=== PATIENT | female | born 1950 | race Caucasian/White ===

== ENCOUNTER → 2019-11-20 | Outpatient (CLI) | payer BC ==
[~2019-11-20] MED LIST: ASPI81TA86 PO; ATOR1TAB19 PO; BYDU1INJ SC; COQ-100C5 PO; CYAN1000VL IM; HM M250T PO; HYDR12.55 PO; IRBE75TA4 PO; METF-877 PO; NO ITAB PO; OMEP1CAP73 PO; SYNT100T PO
== END ==
LOC: M LABSMTC 09:08
PROVIDERS: ATTEND Anesthesiology
DX: Z01.818 Encounter for other preprocedural examination (principal); Z11.59 Encounter for screening for other viral diseases
CPT/HCPCS: C9803; U0003

== ENCOUNTER 2019-11-24 06:42 | Day surgery (SDC) | payer MEDICARE ==
[~2019-11-24] VITALS: Ht 162.6 cm; Wt 79.8 kg
[2019-11-24] MEDS ORDERED: LIDOCAINE 2% MDV 20ML VIAL As Ordered ONE (06:55)
[2019-11-24] MEDS ORDERED: propofoL 200 MG/20 ML VIAL As Ordered ONE (06:55)
[2019-11-24] MEDS ORDERED: NS 1,000 ML IV ONE (07:00)
--- NOTE | 2019-11-24 08:06 | ROOR ---
Patient Name: Shell Kaur Procedure Date: 11/24/2019 7:29 AM Date of : 1950 Age: 69 Room: [facility] Gender: Female Note Status: Finalized Procedure: Total Colonoscopy to Cecum + Biopsy Polypectomy Indications: Screening for colorectal malignant neoplasm Providers: Alexandr Rdz MD Referring MD: Bernadine MILLS MD Requesting Provider: Medicines: Monitored Anesthesia Care Complications: No immediate complications. Procedure: Pre-Anesthesia Assessment: - The heart rate, respiratory rate, oxygen saturations, blood pressure, adequacy of pulmonary ventilation, and response to care were monitored throughout the procedure. The Colonoscope was introduced through the anus and advanced to the cecum, identified by appendiceal orifice and ileocecal valve. The colonoscopy was performed without difficulty. The patient tolerated the procedure well. The quality of the bowel preparation was excellent. Findings: The perianal and digital rectal examinations were normal. Non-bleeding internal hemorrhoids were found during retroflexion. The hemorrhoids were small and Grade I (internal hemorrhoids that do not prolapse). Multiple small and large-mouthed diverticula were found in the recto-sigmoid colon, sigmoid colon and descending colon. A small polyp was found in the hepatic flexure. The polyp was sessile. The polyp was removed with a cold biopsy forceps. Resection and retrieval were complete. The exam was otherwise without abnormality on direct and retroflexion views. Impression: - Non-bleeding internal hemorrhoids. - Diverticulosis in the recto-sigmoid colon, in the sigmoid colon and in the descending colon. - One small polyp at the hepatic flexure, removed with a cold biopsy forceps. Resected and retrieved. - The examination was otherwise normal on direct and retroflexion views. - The exam was otherwise normal to the cecum. Recommendation: - Patient has a contact number available for emergencies. The signs and symptoms of potential delayed complications were discussed with the patient. Return to normal activities tomorrow. Written discharge instructions were provided to the patient. - High fiber diet. - Discharge patient to home. - Continue present medications. - Await pathology results. - Telephone GI clinic for pathology results in 1 week. - Repeat colonoscopy in 7 years for surveillance based on pathology results. - Return to referring physician. - The findings and recommendations were discussed with the patient. Alexandr Rdz MD Alexandr Rdz MD 11/24/2019 8:06:20 AM Electronically signed by Alexandr Rdz MD Number of Addenda: 0 Note Initiated On: 11/24/2019 7:29 AM Estimated Blood Loss: Estimated blood loss: none.
[2019-11-24 08:30] VITALS: BP 182/83
== END 2019-11-24 08:45 | disposition home or self-care (01) ==
LOC: M OPP 06:42
PROVIDERS: ATTEND Internal Medicine Gastroenterology
DX: Z12.11 Encounter for screening for malignant neoplasm of colon (principal); K64.0 First degree hemorrhoids; K63.5 Polyp of colon; K57.30 Diverticulosis of large intestine without perforation or abscess without bleeding; E11.9 Type 2 diabetes mellitus without complications; E03.9 Hypothyroidism, unspecified; I10 Essential (primary) hypertension; Z79.82 Long term (current) use of aspirin; Z79.84 Long term (current) use of oral hypoglycemic drugs; Z79.899 Other long term (current) drug therapy; Z87.891 Personal history of nicotine dependence

== ENCOUNTER 2025-01-19 10:08 | Day surgery (SDC) | payer MEDICARE ==
[~2025-01-19] VITALS: Ht 162.6 cm; Wt 79.9 kg
[~2025-01-19 10:08] MED LIST changes: +ECOT81TA5 PO; +GLIM2TAB4 PO; +IRBE75TA11 PO; -IRBE75TA4 PO; +METO1TAB32 PO; +ROSU20TA86 PO
[2025-01-19] MEDS ORDERED: LIDOCAINE 2% 100 MG/5 ML SDV (FOR ANES.) As Ordered ONE (11:47)
[2025-01-19 12:32] VITALS: BP 156/72; TEMP 98; O2SAT 97
== END 2025-01-19 12:55 | disposition home or self-care (01) ==
LOC: M OPP 10:08
PROVIDERS: ATTEND Internal Medicine Gastroenterology
DX: K57.30 Diverticulosis of large intestine without perforation or abscess without bleeding (principal); K64.0 First degree hemorrhoids; K57.32 Diverticulitis of large intestine without perforation or abscess without bleeding; Z95.0 Presence of cardiac pacemaker; Z88.1 Allergy status to other antibiotic agents; Z88.8 Allergy status to other drugs, medicaments and biological substances; Z91.040 Latex allergy status; Z79.82 Long term (current) use of aspirin; Z79.84 Long term (current) use of oral hypoglycemic drugs; Z79.899 Other long term (current) drug therapy; Z87.891 Personal history of nicotine dependence